=== PATIENT | female | born 1960 | race African-American/Black ===

== ENCOUNTER 2024-09-30 06:00 | Day surgery (SDC) | payer OTHER ==
[2024-09-28 13:12] VITALS: BMI 32.1
[2024-09-30 07:59] VITALS: TEMP 98
[2024-09-30 09:47] VITALS: RESP 14
[2024-09-30 09:49] VITALS: BP 115/80; PULSE 69
== END 2024-09-30 10:45 | disposition home or self-care (01) ==
LOC: JASU-ENDO 06:00
PROVIDERS: ATTEND Internal Medicine Gastroenterology
PROC: 0DBJ8ZX Excision of Appendix, Via Natural or Artificial Opening Endoscopic, Diagnostic (ICD-10-PCS; principal; 2024-09-30 08:30)
DX: Z12.11 Encounter for screening for malignant neoplasm of colon (principal); K63.5 Polyp of colon; K64.8 Other hemorrhoids
CPT/HCPCS: 82962; 88305-TC